=== PATIENT | female | born 1995 | race Caucasian/White ===

== ENCOUNTER → 2016-09-18 | Outpatient (CLI) | payer MEDICAID | LOC: RAD 12:31 | PROVIDERS: ATTEND Family Medicine | DX: Z36 Encounter for antenatal screening of mother (principal) | CPT/HCPCS: 76805 ==

== ENCOUNTER → 2016-11-26 | Outpatient (CLI) | payer MEDICAID ==
[~2016-11-26] MED LIST: DOCU-243 PO; HYDR-3702 PO; Ibuprofen PO
--- NOTE | 2016-11-26 20:35 | Diagnostic Imaging Report ---
INDICATION: Follow-up intracardiac echogenic focus. TECHNIQUE: Multiple real-time grayscale images are obtained through the . COMPARISON: 09/18/2016. FINDINGS: Single fetus is identified currently in transverse presentation. No previa is identified. biometrics: BPD: 6.7 cm, 27 weeks 0 days. Head circumference: 25.9 cm, 28 weeks 2 days. Abdominal circumference: 23.8 cm, 28 weeks 1 day. Femur length: 5.3 cm, 28 weeks 2 days. cardiac rate: 150 beats per minute. Amniotic fluid index: 15.8 cm. Reidentified is an echogenic focus in the left ventricle. anatomic survey is otherwise unremarkable. The hands could not be evaluated on today's exam because of their position. IMPRESSION: 1. Single live intrauterine with an average ultrasound age of 28 weeks 0 days +/- 3 weeks. Interval growth since prior examination has been within normal limits. 2. Intracardiac echogenic focus (left ventricle). As an isolated finding in a low risk patient, this is considered a normal finding. Depending on the clinical risk factors and other clinical considerations, consider genetic sonogram. Dictated by: Dictated on workstation # [id number]
== END ==
LOC: RAD 10:19
PROVIDERS: ATTEND Family Medicine
DX: R93.8 Abnormal findings on diagnostic imaging of other specified body structures (principal); Z09 Encounter for follow-up examination after completed treatment for conditions other than malignant neoplasm
CPT/HCPCS: 76805